=== PATIENT | female | born 1950 | race African-American/Black ===

== ENCOUNTER 2021-04-25 09:06 | Emergency (ER) | payer OTHER ==
[~2021-04-25] VITALS: Ht 165.1 cm; Wt 67.1 kg
[~2021-04-25 09:06] MED LIST: ASPIRIN EC81 M1 PO; CADUET 5 MG-101 EACH PO; GLUMETZA500 PO; NORCO 5-325 TA1 EACH PO; OMEGA-31000 M1 PO; PERCOCET 5-3251 EACH PO; VITAMIN D400 UNI1 PO; ZOFRAN ODT4 MG PO
[2021-04-25] MEDS ORDERED: FAMOTIDINE40 MG PO (09:34)
[2021-04-25] MEDS ORDERED: ATORVASTATIN CA20 MG PO (09:35)
[2021-04-25 09:39] LABS: ABSOLUTE NEUTROPHILS 8.4 thou/uL (1.4-8.2); BASOPHILS 0.4 % (0.0-2.0); EOSINOPHILS 0.1 % (0.0-3.0); HEMATOCRIT 38.1 % (37.0-47.0); HEMOGLOBIN 12.5 gm/dL (12.0-15.0); LYMPHOCYTES 13.7 % (24.0-44.0); MCH 27.8 pg (26.0-34.0); MCHC 32.9 g/dL (28.0-37.0); MCV 84.5 fL (80.0-100.0); MONOCYTES 6.7 % (1.0-8.0); PLATELET COUNT 317 thou/uL (150-400); POLYS 79.1 % (36.0-66.0); RDW 14.4 % (10.5-14.5); WBC 10.6 thou/uL (4.0-11.0)
[2021-04-25 09:50] LABS: URINE BLOOD 3+ (Negative); URINE GLUCOSE-RANDOM* NEGATIVE (Negative); URINE KETONES NEGATIVE (Negative); URINE LEUKOCYTES-REFLEX NEGATIVE (Negative); URINE NITRITE-REFLEX NEGATIVE (Negative); URINE PROTEIN (DIPSTICK) 2+ (Negative); URINE UROBILINOGEN 0.2 E.U./dl (0.2-1.0)
[2021-04-25 09:53] LABS: ICTOTEST (BILI CONFIRMATORY) Negative (Negative); URINE BILIRUBIN NEGATIVE (Negative); URINE CLARITY CLOUDY; URINE COLOR RED
[2021-04-25 09:55] LABS: CREATININE 1.1 mg/dL (0.6-1.0)
[2021-04-25 10:02] LABS: ALBUMIN 4.2 g/dL (3.4-5.0); POTASSIUM 4.1 mmol/L (3.5-5.1); TOTAL BILIRUBIN 0.5 mg/dL (0.2-1.0)
[2021-04-25 10:03] LABS: SQUAMOUS 0-3 Few /LPF (0-3)
[2021-04-25 10:04] LABS: BACTERIA-REFLEX 1-9 Few /HPF (None Seen); CASTS None Seen /LPF (None Seen); CRYSTALS None Seen /LPF (None Seen); MUCUS 0-3 Light strn/LPF (None Seen); URINE RBC >20 Many /HPF (NONE SEEN); URINE WBC-REFLEX 0-5 Rare /HPF (0-5)
[2021-04-25 12:47] VITALS: BP 119/79
[2021-04-25] MEDS ORDERED: CEPHALEXIN500 MG PO ×2 (12:53→17:37)
[2021-04-25] MEDS ORDERED: ZOFRAN ODT4 MG PO (17:37)
== END 2021-04-25 12:55 | disposition home or self-care (01) ==
LOC: ER 09:06
PROVIDERS: Student in an Organized Health Care Education/Training Program
DX: N20.0 Calculus of kidney (principal); Z20.822 Contact with and (suspected) exposure to COVID-19; R10.32 Left lower quadrant pain; E11.9 Type 2 diabetes mellitus without complications; Z79.82 Long term (current) use of aspirin; Z79.899 Other long term (current) drug therapy; Z88.6 Allergy status to analgesic agent; Z91.013 Allergy to seafood

== ENCOUNTER 2021-04-27 18:50 | Inpatient (IN) | payer OTHER ==
[~2021-04-27] VITALS: Ht 165.1 cm; Wt 66.2 kg
[~2021-04-27 18:50] MED LIST changes: +ATORVASTATIN CA20 MG PO; +CEPHALEXIN500 MG PO; +FAMOTIDINE40 MG PO
[2021-04-27 19:05] VITALS: BP 136/74
[2021-04-27 19:43] VITALS: BP 180/74
[2021-04-27 19:50] LABS: HEMOGLOBIN 12.3 gm/dL (12.0-15.0); LYMPHOCYTES 8.2 % (24.0-44.0); MCH 27.3 pg (26.0-34.0)
[2021-04-27 19:51] LABS: ABSOLUTE NEUTROPHILS 9.8 thou/uL (1.4-8.2); BASOPHILS 0.3 % (0.0-2.0); EOSINOPHILS 0.1 % (0.0-3.0); HEMATOCRIT 38.4 % (37.0-47.0); MCHC 32.1 g/dL (28.0-37.0); MCV 85.1 fL (80.0-100.0); MONOCYTES 5.6 % (1.0-8.0); PLATELET COUNT 282 thou/uL (150-400); POLYS 85.8 % (36.0-66.0); RBC 4.51 mil/uL (4.20-5.00); RDW 14.2 % (10.5-14.5); WBC 11.5 thou/uL (4.0-11.0)
[2021-04-27 19:55] LABS: POTASSIUM 3.7 mmol/L (3.5-5.1)
[2021-04-27 20:02] LABS: ALBUMIN 4.3 g/dL (3.4-5.0); TOTAL BILIRUBIN 0.4 mg/dL (0.2-1.0); TOTAL PROTEIN 8.1 g/dL (6.4-8.2)
[2021-04-27 21:22] LABS: URINE BILIRUBIN NEGATIVE (Negative); URINE BLOOD 3+ (Negative); URINE CLARITY CLEAR; URINE COLOR YELLOW; URINE GLUCOSE-RANDOM* NEGATIVE (Negative); URINE KETONES 3+ (Negative); URINE LEUKOCYTES-REFLEX TRACE (Negative); URINE NITRITE-REFLEX NEGATIVE (Negative); URINE PROTEIN (DIPSTICK) NEGATIVE (Negative); URINE UROBILINOGEN 0.2 E.U./dl (0.2-1.0)
[2021-04-27 22:06] LABS: BACTERIA-REFLEX 1-9 Few /HPF (None Seen); COARSE GRANULAR CASTS 0-3 Few /LPF (None Seen); CRYSTALS None Seen /LPF (None Seen); MUCUS 0-3 Light strn/LPF (None Seen); SQUAMOUS 4-10 Moderate /LPF (0-3); URINE WBC-REFLEX 0-5 Rare /HPF (0-5)
[2021-04-27] MEDS ORDERED: FAMOTIDINE40 MG PO (22:46)
[2021-04-27] MEDS ORDERED: METFORMIN HCL500 M3 PO (22:48)
[2021-04-27] MEDS ORDERED: LIPITOR 20 MG T20 M1 PO (22:48)
[2021-04-27] MEDS ORDERED: NORVASC10 MG PO (22:48)
[2021-04-28] VITALS (9 sets, daily range): BP systolic 123–147; BP diastolic 55–76
--- NOTE | 2021-04-28 01:03 | NUR ---
Pt admitted from ED @2315 with kidney stone. A/OX4,pt having N/V upon arrival,medicated with Zofran with a little relief then Compazine. VSS. Up ad michelle,fall safety reinforced agrees to call for help as needed. C/o pain to left flank. Urology consult called at this time. NPO from midnight,IVF infusing w/o problems. Will continue to monitor pt.
[2021-04-28 06:02] LABS: HEMATOCRIT 37.7 % (37.0-47.0); HEMOGLOBIN 12.1 gm/dL (12.0-15.0); MCH 27.3 pg (26.0-34.0); MCHC 32.1 g/dL (28.0-37.0); MCV 85.2 fL (80.0-100.0); RBC 4.42 mil/uL (4.20-5.00); RDW 14.2 % (10.5-14.5); WBC 8.4 thou/uL (4.0-11.0)
[2021-04-28 06:44] LABS: CALCIUM 9.1 mg/dL (8.5-10.1); CREATININE 1.2 mg/dL (0.6-1.0); POTASSIUM 3.4 mmol/L (3.5-5.1)
--- NOTE | 2021-04-28 14:54 | NUR ---
PT AMDITTED RELATED TO KIDNEY STONE. CM REVIEWED CHART AND SPOKE WITH CARE TEAM. CM MET WITH PT AT BEDSIDE THIS DAY. PT APPEARED TO BE A&O X4. CM ROLE INTRODUCED. PT INDICATED SHE LIVES IN A HOUSE WITH HER SPOUSE AND YOUNGEST DTR WITH 2 STEPS TO ENTER AND FROM GARAGE AND ALL NEEDS ON 1 LEVEL. 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 PT INDICATED SHE PLANS TO RETURN HOME ONCE MEDICALLY STABLE. PT HAVING SURGERY LATE THIS EVENING. PT MAY BE MEDICALLY STABLE TO DC HOME TOMORROW. NO NEEDS ANTICPATED UPON DC. CM FOLLOWING SHOULD ANY NEEDS ARISE.
--- NOTE | 2021-04-28 20:00 | NUR ---
Assumed pt care this am, received npo this am. Vs stable and was taken down to OR late in the pm for left ureteroscopy came back at 7 pm. POC followed, endorsed to the [facility] nurse to monitor for post op vs.
[2021-04-29 00:32] VITALS: BP 124/72
--- NOTE | 2021-04-29 05:32 | NUR ---
ASSUMED CARE AT 1900, PT LAYING COMFORTABLY IN BED, ASSISTED TO THE BATHROOM, REPORTS NO PAIN OR DISCOMFORT, CALL LIGHT WITHIN REACH, COMPLIANT WITH TX, NO ADVERSE REACTION NOTED, WILL CONTINUE TO MONITOR.
[2021-04-29 06:14] LABS: ALBUMIN 3.2 g/dL (3.4-5.0); CALCIUM 9.3 mg/dL (8.5-10.1); CREATININE 0.8 mg/dL (0.6-1.0); PHOSPHORUS 3.5 mg/dL (2.5-4.9); POTASSIUM 3.1 mmol/L (3.5-5.1)
[2021-04-29 07:32] VITALS: BP 107/62
[2021-04-29 08:17] VITALS: BP 107/62
--- NOTE | 2021-04-29 11:55 | NUR ---
Pt A & O x4. Pt is independent with cares and ADLs and is up ad michelle. Pt VS stable. pt denies pain. pt received medications as ordered. pt is room air. Pt received discharge to home. pt at bedside. Pt discharge instructions reviewed with pt and pt verbalized understanding and signed instructions. pt wheeled to enterence in wheelchair with personal belongings and discharge instructions and left hospital without incident in private vehicle.
--- NOTE | 2021-05-03 15:08 | PATH ---
[facility] [address] [place] [address] PATHOLOGY RPT PROCEDURE Name: ANGIE BLANKENSHIP PAGE Room #: 460-P DIS IN M.R.#: [id number] Admission: 04/27/21 Date of : 48 Discharge: 04/29/21 Report #: [id number] Path Case #: [id number] [facility] Accession Number: [id number] . 01 Material submitted: . ureter - LEFT URETERAL STONE. Modifiers: left . 01 Clinical history: . CYSTOSCOPY CYSTOSCOPY W/ RETROGRADES AND STENT . 02 Diagnosis: Left ureteral stone: - Consistent with calculi. - The specimen is sent out for further processing. - Report pending outside analysis with results to follow in an addendum. [facility] 05/01/2021 1445 Local . 02 Addendum: . Outside report received from [facility], [address] [place] [address], [place], [id number], on case [id number], labeled with their number [id number], dated 05/03/2021. . Stone Analysis Report . Stone Composition Composition (percent) Calcium Oxalate Monohydrate 78 Calcium Oxalate Dihydrate 20 Calcium Phosphate Carbonate 2 TOTAL: 100 . . The stone is submitted in fragmented form with no discernible core. It is cream, thompson and brown in color, weighs approximately 90 milligrams and displaces less than 0.1 cc of distilled water. THE CALCULUS IS COMPOSED OF A MIXTURE OF CALCIUM OXALATE MONOHYDRATE (WHEWELLITE), CALCIUM OXALATE DIHYDRATE (WEDDELITE) AND CALCIUM PHOSPHATE CARBONATE (CARBONATE-APATITE). . LEFT URETERAL . . . Jaspreet Collier MD Investigative Research Specialist . . A complete copy of the report is on file. [address] [address] PATHOLOGY RPT PROCEDURE Name: ANGIE BLANKENSHIP PAGE Room #: 460-P [facility] IN M.R.#: [id number] Admission: 04/27/21 Date of : 48 Discharge: 04/29/21 Report #: [id number] Path Case #: [id number] . Technical and Professional services for the special studies performed by [facility], [address] [place] [id number]. (ANK:leobardo; 05/03/2021) . . . QMS/05/03/2021 Addendum Electronically Signed by Keri Grimes MD PATHOLOGIST . 02 Electronically signed: . Keri Grimes MD, Pathologist NPI- [id number] . 01 Gross description: . The specimen is received fresh, labeled "Angie Blankenship, left ureteral stone". Received are multiple pale yellow to dark brown calculi ranging in size from 0.3-0.5 cm. The specimen is forwarded to sendouts for further processing. ([facility]; 05/01/2021) NRI/NRI 05/01/2021 1447 Local . 02 Pathologist provided ICD-10: N20.1 . 02 CPT . 760868 Specimen Comment: A courtesy copy of this report has been sent to [phone] Specimen Comment: [phone], Specimen Comment: Report sent to , DR MUÑOZ / DR BOGGS Specimen Comment: A duplicate report has been generated due to demographic updates. Performed at: [address] [facility], [place], [place] [id number] MD Philippe Park MD Phone: [phone] Performed at: [address] [facility] [id number] MD Shanti Springer MD Phone: [phone]
== END 2021-04-29 13:00 | disposition home or self-care (01) | DRG 661 ==
LOC: ER 18:50 → 4W 22:46 → EROBS 22:46 → 4W 22:50
PROVIDERS: Nurse Practitioner Family; Physician Assistant; Urology; ADMIT Hospitalist; ATTEND Hospitalist
PROC: 0TC78ZZ Extirpation of Matter from Left Ureter, Via Natural or Artificial Opening Endoscopic (ICD-10-PCS; principal; 2021-04-28)
PROC: 0T778DZ Dilation of Left Ureter with Intraluminal Device, Via Natural or Artificial Opening Endoscopic (ICD-10-PCS; principal; 2021-04-28)
DX: N13.2 Hydronephrosis with renal and ureteral calculous obstruction (principal); E11.9 Type 2 diabetes mellitus without complications; I10 Essential (primary) hypertension; E78.5 Hyperlipidemia, unspecified; Z20.822 Contact with and (suspected) exposure to COVID-19; Z85.3 Personal history of malignant neoplasm of breast; Z88.6 Allergy status to analgesic agent; Z91.013 Allergy to seafood; Z92.21 Personal history of antineoplastic chemotherapy; Z92.3 Personal history of irradiation; Z90.710 Acquired absence of both cervix and uterus; Z80.0 Family history of malignant neoplasm of digestive organs; Z79.82 Long term (current) use of aspirin; Z79.899 Other long term (current) drug therapy; N39.0 Urinary tract infection, site not specified
CPT/HCPCS: 10040; 50010; 50101; 50164; 51511; 51767; 56674; 56815; 57160; 58510; 58565; 58732; 62110; 62900; 70005